=== PATIENT | male | born 1995 | race Caucasian/White ===

== ENCOUNTER 2018-11-07 15:54 | Emergency (ER) | payer OTHER ==
--- NOTE | 2018-11-07 16:29 | EDPHY ---
H & P Stated Complaint: Left index lac Time Seen by Provider: 11/07/18 16:26 HPI/ROS: HPI: This is a 22-year-old male who presents with Chief Complaint: Left index finger laceration Location: Left index finger Quality: Cut by a knife Duration: 30 min prior to arrival Signs and Symptoms: + bleeding, no radiation, no numbness, no weakness, no tingling, no incontinence, no decreased range of motion, no swelling, no pain, no fever Timing: Acute Severity: Mild Context: Patient is student at [employer], right-hand dominant, presents with accidentally cutting his left index finger on the side and taking off a piece of skin while using a knife to cut vegetables. He reports that his tetanus is current. He reports he placed a pressure dressing and stop the bleeding. Now is unable to remove the pressure dressing as it is "stuck to the wound." Denies radiation, weakness, decreased range of motion. Modifying Factors: Direct pressure Comment: ROS: A comprehensive 10 system review of systems is otherwise negative aside from elements mentioned in the history of present illness. MEDICAL/SURGICAL/SOCIAL HISTORY: Medical history: Generally healthy. Does not take any regular medications. Surgical history: Denies Social history: Student. Denies tobacco use. CONSTITUTIONAL: Polite and cooperative well-developed and well-nourished young adult white male, awake and alert, no obvious distress HEENT: Atraumatic and normocephalic, PERRL, EOMI. Nares patent; no rhinorrhea; no nasal mucosal edema. Tympanic membranes clear. Oropharynx clear, no exudate and moist pink mucosa. Airway patent. No lymphadenopathy. No meningismus. Cardiovascular: Normal S1/S2, regular rate, regular rhythm, without murmur rub or gallop. PULMONARY/CHEST: Symmetrical and nontender. Clear to auscultation bilaterally. Good air movement. No accessory muscle usage. ABDOMEN: Soft, nondistended, nontender, no rebound, no guarding, no peritoneal signs, no masses or organomegaly. No CVAT. EXTREMITIES: 2/2 pulses, strength 5/5, left index finger at the tip shows superficial skin avulsion lateral to the nail with no 1/8 lateral nail removal; DIP, PIP, MCP joints have full range of flexion and extension. Good light touch sensation. no deformities, no clubbing, no cyanosis or edema. NEUROLOGICAL: no focal neuro deficits. GCS 15. SKIN: Warm and dry, no erythema. no rash. Good capillary refill. Source: Patient Exam Limitations: No limitations - Personal History Current Tetanus/Diphtheria Vaccine: Yes - Medical/Surgical History Hx Asthma: No Hx Chronic Respiratory Disease: No Hx Diabetes: No Hx Cardiac Disease: No Hx Renal Disease: No Hx Cirrhosis: No Hx Alcoholism: No Other PMH: Denies - Social History Smoking Status: Never smoked Constitutional: Initial Vital Signs Temperature (C) 36.5 C 11/07/18 16:22 Heart Rate 79 11/07/18 16:22 Respiratory Rate 18 11/07/18 16:22 Blood Pressure 134/75 H 11/07/18 16:22 O2 Sat (%) 96 11/07/18 16:22 O2 Delivery Mode Room Air Allergies/Adverse Reactions: No Known Allergies Allergy (Unverified 11/07/18 16:25) Home Medications: Medication Instructions Recorded NK [No Known Home Meds] 11/07/18 Medical Decision Making ED Course/Re-evaluation: Tetanus is up-to-date. Soaked and copiously irrigated No skin to suture as superficial skin avulsion. No nail involvement. Surgifoam, Xeroform and tube gauze dressing applied with good hemostasis. Verbal and written wound care instructions provided. No signs of neurovascular compromise/tenting of skin/compartment syndrome/ extremities and joints examined above and below area of concern and are neurovascularly intact. This patient was seen under the supervision of my secondary supervising physician. I evaluated care for this patient independently. Discussed this patient with Dr. Avitia who did not see the patient. Differential Diagnosis: Differential diagnosis includes but is not limited to laceration, skin avulsion , nail injury, nerve injury, tendon injury. Departure - Departure Disposition: Home, Routine, Self-Care Clinical Impression: Avulsion of skin of finger without complication Qualifiers: Encounter type: initial encounter Qualified Code(s): S61.209A - Unspecified open wound of unspecified finger without damage to nail, initial encounter Condition: Good Instructions: Skin Avulsion (ED), Nail Avulsion (ED) Additional Instructions: Keep the dressing dry and in place for 48 hours. After 48 hours, you may remove the dressing; wash the site daily with mild soap and water; then pat dry. Apply topical antibiotic ointment and clean sterile dressing daily until fully healed. Take Tylenol 650 mg every 4 hours and/or Ibuprofen 600 mg every 8 hours with food as needed for pain. Will take several weeks for your nail to regrow. Return to the ER immediately if you experience redness, red streaks, have fevers /chills, flu like symptoms, limited range of motion, or any other symptoms that concern you. Referrals: [facility],. [Clinic] - As per Instructions Klely Simpson MD [Medical Doctor] - As per Instructions
[2018-11-07 17:53] VITALS: BP 120/67
== END 2018-11-07 17:41 | disposition home or self-care (01) ==
DX: S61.211A Laceration without foreign body of left index finger without damage to nail, initial encounter (principal); W26.0XXA Contact with knife, initial encounter; Y93.G3 Activity, cooking and baking